=== PATIENT | female | born 1990 ===

== ENCOUNTER 2020-07-29 05:32 | Day surgery (SDC) | payer OTHER | END 2020-07-29 13:55 | disposition home or self-care (01) | LOC: CIR.AMB 05:32 | PROVIDERS: ATTEND Obstetrics & Gynecology | DX: D06.7 Carcinoma in situ of other parts of cervix (principal); Z20.822 Contact with and (suspected) exposure to COVID-19; N72 Inflammatory disease of cervix uteri ==